=== PATIENT | male | born 1950 ===

== ENCOUNTER 2019-06-16 06:12 | Day surgery (SDC) | payer OTHER, MEDICAID ==
[~2019-06-16] VITALS: Ht 162.6 cm; Wt 83.9 kg
[2019-06-16] MEDS ORDERED: ATOR40TA PO (07:02)
[2019-06-16] MEDS ORDERED: LISI-420 PO (07:02)
[2019-06-16] MEDS ORDERED: METF500T PO (07:02)
[2019-06-16] MEDS ORDERED: fentaNYL 0.05 MG/ML VIAL ONE (07:24)
[2019-06-16] MEDS ORDERED: LIDOCAINE 2% 100 MG/5 ML UJET TP ONE (07:24)
[2019-06-16] MEDS ORDERED: fentaNYL 0.05 MG/ML VIAL IVP ONE (08:55)
== END 2019-06-16 08:55 | disposition home or self-care (01) ==
LOC: MDS 06:12 → MMU 06:12 → MDS 08:55
PROVIDERS: ATTEND Internal Medicine Gastroenterology
DX: D64.9 Anemia, unspecified (principal); K62.1 Rectal polyp; K63.5 Polyp of colon; K57.30 Diverticulosis of large intestine without perforation or abscess without bleeding; E66.9 Obesity, unspecified; E11.9 Type 2 diabetes mellitus without complications; I10 Essential (primary) hypertension; E78.5 Hyperlipidemia, unspecified; Z79.899 Other long term (current) drug therapy; Z79.84 Long term (current) use of oral hypoglycemic drugs; Z68.31 Body mass index [BMI] 31.0-31.9, adult; Z98.890 Other specified postprocedural states
CPT/HCPCS: 45385; J3010